=== PATIENT | male | born 1995 | race Caucasian/White ===

== ENCOUNTER 2024-04-15 15:09 | Observation (INO) ==
--- NOTE | 2024-04-15 15:30 | Emergency Department Note ---
Impression & Plan Dysrhythmia ED Provider Note HISTORY OF PRESENT ILLNESS: Patient is a 28-year-old male presenting with chest pressure and hot flashes. Patient reports that yesterday he would get recurrent episodes of feeling very hot and sweaty and feeling lightheaded and dizzy and having chest pressure. Reports that it occurred multiple times throughout the day. He states that he had further symptoms this morning and went to a walk-in clinic and was referred to the emergency department for further evaluation. Patient was found to be in A-fib with RVR at the walk-in clinic with his heart rate in the 140s and was referred to the ER for further workup. Patient denies any active chest pain. He denies any shortness of breath. Denies any DVT or PE history. He does state he drinks anywhere from 8-10 beers a day and has been doing this for multiple years. He denies any anticoagulation use. Denies any recent medication changes. He does report he had a heart attack when he was 17 years old. Denies any excessive caffeine intake recently. ROS: as above PHYSICAL EXAM: Constitutional: Patient appears in no acute distress. HENT: Head: Normocephalic and atraumatic. Eyes: EOMI, PERRL Mouth/Throat: Mucous membranes moist. Neck: Trachea midline. Neck supple. Cardiovascular: Tachycardic with irregularly irregular rhythm. No murmurs, rubs or gallops. Intact distal pulses. Pulmonary/Chest: No respiratory distress. Breath sounds clear and equal bilaterally. No wheezes or rales. No chest wall tenderness to palpation. Abdominal: Abdomen soft, no tenderness, rebound or guarding. Musculoskeletal: No edema, tenderness or deformity noted. Skin: Warm and dry. No rash, erythema, pallor or cyanosis Psychiatric: Appropriate mood and affect for situation. Neurological: Alert and keenly responsive. CN II-XII grossly intact, moving all extremities equally and fully. MDM: - Vitals signs showed tachycardia. - History obtained via patient. History as above. - Chronic conditions affecting care: None - Differential diagnoses include, but are not limited to: Electrolyte abnormality; dysrhythmia; ACS; PE; pneumonia - Order placed for continuous cardiac monitoring. At this time, monitor showed rate of 142 bpm with normal sinus rhythm, per my interpretation. - External medical records reviewed. - EKG interpreted by myself showed atrial fibrillation. Rate tachycardic at 149 bpm. QT 274. No acute ischemic changes. - Laboratory workup interpreted by myself showed normal WBC; stable electrolytes; normal troponin; normal lipase; negative d-dimer - CXR negative for pneumonia, per my interpretation - Patient initially given 10 mg IV cardizem. Heart rate came down to the upper 90s to low 100s. Patient does appear to be going into a sinus arrhythmia and then back into atrial fibrillation on telemetry. Cardizem drip was ordered and placed at bedside. - Repeat EKG obtained at 16:17 interpreted by myself showed normal sinus rhythm. Rate 89 bpm. QT 332. No acute ischemic changes. - Viral respiratory panel negative - On reassessment at 17:28, patient is still noted to be in the normal sinus rhythm. Rate 81 bpm on telemetry. - Discussion was had with watch caser about patient's case and need for admission - Hospitalist consulted for admission - [facility] ASSESSMENT AND PLAN: Diagnosis: dysrhythmia Plan: Admit Past Med/Surg History Problem List (Updated 04/15/24 @ 17:43 by Celia Leung MD) Dysrhythmia (Acute) Social History Smoking Status: Never smoker Preferred Language: Malay Feels Safe at Home: Yes Allergies Allergies Allergy/AdvReac Type Severity Reaction Status Date / Time No Known Allergies Allergy Unverified 04/15/24 16:04 Home Meds Home Medications Medication Instructions Recorded Confirmed buspirone 7.5 mg tablet 7.5 mg PO BID 04/15/24 04/15/24 trazodone 50 mg tablet 50 mg PO HS PRN Sleep 04/15/24 04/15/24 Results & Data (ED) Vital Signs Vital Signs - 24 hr 04/15/24 15:14 04/15/24 15:23 04/15/24 15:27 Temperature 36 C L Temperature Source Skin Pulse Rate 97 H 155 H Pulse Rate [Apical] Pulse Rhythm [Apical] Respiratory Rate 18 20 Respiratory Effort / Characteristics Non-Labored Spontaneous Respiratory Depth Normal Respiratory Pattern Regular Blood Pressure 140/75 Blood Pressure [Left Arm] Blood Pressure Mean 96 Blood Pressure Mean [Left Arm] Blood Pressure Position [Left Arm] Pulse Oximetry 97 100 Oxygen Delivery Method Room Air Room Air Room Air Sepsis Recent Fever Within 48 Hours No Sepsis New/Unexplained Change in Mental Status N/A Sepsis Action Taken by Nursing No Action Required 04/15/24 15:33 04/15/24 16:34 Temperature Temperature Source Pulse Rate 144 H Pulse Rate [Apical] 82 Pulse Rhythm [Apical] Regular Respiratory Rate 20 Respiratory Effort / Characteristics Respiratory Depth Respiratory Pattern Blood Pressure Blood Pressure [Left Arm] 127/82 Blood Pressure Mean Blood Pressure Mean [Left Arm] 97 Blood Pressure Position [Left Arm] Sitting Pulse Oximetry 98 Oxygen Delivery Method Room Air Sepsis Recent Fever Within 48 Hours Sepsis New/Unexplained Change in Mental Status Sepsis Action Taken by Nursing Laboratory Data 04/15/24 15:25 04/15/24 15:25 Lab Results 04/15/24 04/15/24 Range/Units 15: 16:20 WBC 9.21 (4.8-10.8) K/ul RBC 5.47 (4.70-6.10) M/uL Hgb 17.7 (14.0-18.0) g/dl Hct 48.7 (42.0-52.0) % MCV 89.0 (80.0-100.0) fL MCH 32.4 (25.0-34.0) pg MCHC 36.3 H (32.0-36.0) g/dL RDW Std Deviation 35.2 L (36.4-46.3) fL RDW Coeff of Mary 10.9 L (11.5-14.5) % Plt Count 260 (130-400) K/uL MPV 10.0 (9.4-12.4) fL Immature Gran % (Auto) 0.4 % Neut % (Auto) 51.9 % Lymph % (Auto) 36.0 % [place] % (Auto) 9.0 % Eos % (Auto) 2.0 % Baso % (Auto) 0.7 % Neut # (Auto) 4.78 (1.40-6.50) K/uL Lymph # (Auto) 3.32 (1.20-3.40) K/uL [place] # (Auto) 0.83 H (0.11-0.59) K/uL Eos # (Auto) 0.18 (0.00-0.50) K/uL Baso # (Auto) 0.06 (0.00-0.20) K/uL Immature Gran # (Auto) 0.04 (0.01-0.20) K/uL PT 10.7 (9.0-12.0) Seconds INR 1.0 (0.9-1.1) D-Dimer < 190 (0-500) ug/L FEU Sodium 141 (136-145) mmol/L Potassium 3.7 (3.5-5.1) mmol/L Chloride 103 (98-107) mmol/L Carbon Dioxide 31 (21-32) mmol/L Anion Gap 7 (3-11) BUN 13 (6-23) mg/dl Creatinine 1.20 (0.6-1.4) mg/dl Est Cr Clr Drug Dosing 100.8 ml/min eGFR 85.00 BUN/Creatinine Ratio 10.8 (10-20) Glucose 93 (70-99(Fasting)) mg/dl Calcium 9.5 (8.6-10.3) mg/dl Magnesium 2.2 (1.7-2.4) mg/dl Total Bilirubin 0.7 (0.2-1.0) mg/dl AST 29 (13-39) U/L ALT 28 (7-52) U/L Alkaline Phosphatase 67 (34-104) U/L Troponin I High Sens 4.5 (0-20) pg/ml Total Protein 8.3 (6.0-8.3) gm/dl Albumin 5.3 H (3.4-5.0) gm/dl Globulin 3.0 (2.5-4.0) gm/dl Albumin/Globulin Ratio 1.8 (0.9-2) Lipase 47 (11-82) U/L Adenovirus (PCR) Not Detected (NotDetected) B. pertussis DNA (PCR) Not Detected (NotDetected) B.parapertussis DNA PCR Not Detected (NotDetected) C. pneumoniae DNA (PCR) Not Detected (NotDetected) Coronavirus OC43 (PCR) Not Detected (NotDetected) Coronavirus HKU1 (PCR) Not Detected (NotDetected) Coronavirus 229E (PCR) Not Detected (NotDetected) SARS-CoV-2 (PCR) Not Detected (NotDetected) Coronavirus NL63 (PCR) Not Detected (NotDetected) Human Metapneumovir PCR Not Detected (NotDetected) Influenza Type A (PCR) Not Detected (NotDetected) Influenza Type B (PCR) Not Detected (NotDetected) M. pneumoniae (PCR) Not Detected (NotDetected) Parainfluenza 1 (PCR) Not Detected (NotDetected) Parainfluenza 2 (PCR) Not Detected (NotDetected) Parainfluenza 3 (PCR) Not Detected (NotDetected) Parainfluenza 4 (PCR) Not Detected (NotDetected) RSV (PCR) Not Detected (NotDetected) Entero/Rhino (PCR) Not Detected (NotDetected) Administered Medications Discontinued Medications Diltiazem HCl (Diltiazem Hcl 5 Mg/Ml 5 Ml Vial) 10 mg IV NOW STA Stop: 04/15/24 15:29 Last Admin: 04/15/24 15:31 Dose: 10 mg Documented By: CARLA Co-signed By: ALISSA Imaging Data Radiologist's Impression: Chest X-Ray 04/15/24 15:23 Chest radiograph, one view History: Chest pain Comparison: None Findings: Single AP view of the chest performed. No focal consolidation or pleural effusion. No pneumothorax. The cardiomediastinal silhouette is within normal limits. Normal pulmonary vascularity. No evidence for lymphadenopathy. No visualized bony or soft tissue abnormality. Impression: Normal chest radiograph Electronically signed by Kem Alba 04-15-2024 3:52 PM Discharge Plan Visit Data Chief Complaint: Chest Pain Stated Complaint: CHEST PAIN, ABN EKG ED Provider: Celia Leung Discharge Problem: Dysrhythmia Forms Stand Alone Forms: [facility] Prescriptions Prescriptions: No Action trazodone 50 mg Tablet 50 mg PO HS PRN (Reason: Sleep) buspirone 7.5 mg Tablet 7.5 mg PO BID Referrals Referrals: PCP,NO [Physician] -
[2024-04-15] MEDS: dilTIAZem HCl 5 MG/ML 5 ML VIAL IV STA (15:31)
[2024-04-15] MEDS ORDERED: dilTIAZem HCL 125 MG in DEXTROSE 5% 100 ML IV SCH (15:45)
[2024-04-15 15:50] LABS: Basophils # (auto) 0.06 K/uL (0.00-0.20); Basophils % (auto) 0.7 %; Eosinophils # (auto) 0.18 K/uL (0.00-0.50); Hematocrit (blood only) 48.7 % (42.0-52.0); Hemoglobin 17.7 g/dl (14.0-18.0); Immature Granulocytes # (auto) 0.04 K/uL (0.01-0.20); Immature Granulocytes % (auto) 0.4 %; Lymphocytes # (auto) 3.32 K/uL (1.20-3.40); Mean Corpuscular Hemoglobin 32.4 pg (25.0-34.0); Mean Corpuscular Hgb Conc 36.3 g/dL (32.0-36.0); Monocytes # (auto) 0.83 K/uL (0.11-0.59); Neutrophils # (auto) 4.78 K/uL (1.40-6.50); Neutrophils % (auto) 51.9 %; Platelet Count 260 K/uL (130-400); RDW Coefficient of Variation 10.9 % (11.5-14.5); RDW Standard Deviation 35.2 fL (36.4-46.3); Red Blood Count 5.47 M/uL (4.70-6.10); White Blood Count 9.21 K/ul (4.8-10.8)
--- NOTE | 2024-04-15 15:53 | XRay Report ---
Chest radiograph, one view History: Chest pain Comparison: None Findings: Single AP view of the chest performed. No focal consolidation or pleural effusion. No pneumothorax. The cardiomediastinal silhouette is within normal limits. Normal pulmonary vascularity. No evidence for lymphadenopathy. No visualized bony or soft tissue abnormality. Impression: Normal chest radiograph Electronically signed by Kem Alba 04-15-2024 3:52 PM
[2024-04-15 16:06] LABS: Albumin Globulin Ratio 1.8 (0.9-2); Albumin Level 5.3 gm/dl (3.4-5.0); BUN Creatinine Ratio 10.8 (10-20); Bilirubin,Total 0.7 mg/dl (0.2-1.0); Calcium 9.5 mg/dl (8.6-10.3); Creatinine Clr Calc Pharmacy 100.8 ml/min; Magnesium 2.2 mg/dl (1.7-2.4); Potassium 3.7 mmol/L (3.5-5.1); Total Protein 8.3 gm/dl (6.0-8.3)
[2024-04-15 16:12] LABS: Troponin I High Sensitivity 4.5 pg/ml (0-20)
[2024-04-15 16:14] LABS: D Dimer < 190 ug/L FEU (0-500); Prothrombin Time 10.7 Seconds (9.0-12.0)
[2024-04-15 17:27] LABS: Adenovirus PCR Not Detected (NotDetected); Bordetella parapertussis PCR Not Detected (NotDetected); Bordetella pertussis PCR Not Detected (NotDetected); Chlamydia pneumoniae PCR Not Detected (NotDetected); Coronavirus 229E PCR Not Detected (NotDetected); Coronavirus CoV-2 (COVID19)PCR Not Detected (NotDetected); Coronavirus HKU1 PCR Not Detected (NotDetected); Coronavirus NL63 PCR Not Detected (NotDetected); Coronavirus OC43PCR Not Detected (NotDetected); Human Metapneumovirus PCR Not Detected (NotDetected); Influenza A PCR Not Detected (NotDetected); Influenza B PCR Not Detected (NotDetected); Mycoplasma pneumoniae PCR Not Detected (NotDetected); Parainfluenza Virus 1 PCR Not Detected (NotDetected); Parainfluenza Virus 2 PCR Not Detected (NotDetected); Parainfluenza Virus 3 PCR Not Detected (NotDetected); Parainfluenza Virus 4 PCR Not Detected (NotDetected); Respiratory Syncytial VirusPCR Not Detected (NotDetected); Rhinovirus/Enterovirus PCR Not Detected (NotDetected)
--- NOTE | 2024-04-15 18:19 | History & Physical Report ---
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 Upon presentation to the ED, his rate was in the 140s to 150s. He was given diltiazem 10 mg IV x 1 with initially not response, after 20-30 minutes ED reports he converted to and stayed in NSR after fluctuating between atrial fibrillation and sinus rhythm. No known prior history of atrial fibrillation. Pt does consume eight beers per day, one Monster energy drink. No recent change in intake, no new medications. Referred for admission to observe on the monitor overnight and ensure patient stays in sinus rhythm. Based on symptom description, suspect he developed paroxysmal atrial fibrillation yesterday. - Admit to PCU - ECHO - Check TSH, lyme serologies. - Recommend avoidance of caffeine, specifically energy drinks - Gabapentin alcohol withdrawal protocol, thiamine, folic acid - Consult cardiology - spoke with Dr. Guaman who states pt could follow-up outpatient if no significant abnormalities on ECHO and maintains sinus rhythm overnight. - Will hold off on starting additional medications for now - PRN IV Lopressor for afib with RVR (rates >110) Plan Pt seen and reviewed with collaborating physician, Dr. Paul. Plan of care discussed and as outlined above. 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 He reports that yesterday, towards the end of his shift, had an episode of sweating like a hot flash, associated sensation of heart racing. Lasted a few minutes then went away. Shortly thereafter it happened again as he was getting ready to leave work but this time he developed sensation of near-syncope so he went out to his car and the symptoms improved. He went to the gym for his usual workout and did fine until he was doing pull-ups and developed similar symptoms of flushing and racing heart. These episodes continued overnight, seemingly triggered by exertion and then relieved by resting. He went to work today and was able to make it through his shift but continued to have these episodes so went to urgent care after work to be evaluated. There he was found to be in atrial fibrillation with RVR so he was referred to the ED for evaluation. He reports a history of unspecified heart issue at the age of 17 that was associated with untreated Lyme disease. Has not followed with cardiology since then. No other cardiac issues since then until current episode. He drinks one monster energy drink per day before work but denies other caffeine intake. Also report that he drinks 8 ten ounce beers per day, this is unchanged. Does not recall prior history of withdrawal. He was using a steroid protocol for body building but stopped this about a month ago. No smoking but uses pouches. Works 6-2 at [employer] [place]. Allergies Allergy/AdvReac Type Severity Reaction Status Date / Time No Known Allergies Allergy Unverified 04/15/24 16:04 Home Medications Medication Instructions Recorded Confirmed Type buspirone 7.5 mg tablet 7.5 mg PO BID PRN Anxiety 04/15/24 04/15/24 History trazodone 50 mg tablet 100 mg PO HS Sleep 04/15/24 04/15/24 History Past Med/Surg History Problem List (Updated 04/15/24 @ 18:57 by Rosmery Echeverria PA-C) PAF (paroxysmal atrial fibrillation) Dysrhythmia (Acute) Surgical History (Updated 04/15/24 @ 18:57 by Rosmery Echeverria PA-C) No pertinent past surgical history Family History (Updated 04/15/24 @ 18:57 by Rosmery Echeverria PA-C) Grandmother Heart abnormality required a pacer Other Breast cancer Social History Smoking Status: Never smoker Preferred Language: Beninese Feels Safe at Home: Yes Review of Systems Review of Systems: All systems reviewed & are unremarkable except as noted in Subjective Physical Exam Physical Exam: General: awake, alert, NAD HEENT: no scleral icterus, moist oral mucosa Heart: regular but tachycardic Lungs: CTA bilaterally Abdomen: soft, NT, +BS Extremities: no pedal edema, distal pulses intact and equal Skin: warm, dry, no jaundice or cyanosis Neurologic: Ox3, moving all extremities, no focal deficits, no confusion or dysarthria Results & Data Results & Data Vital Signs (Past 12 Hours) Vital Signs Temp Pulse Pulse Resp BP BP Pulse Ox 04/15/24 17:36 98 H 21 134/87 100 04/15/24 17:00 86 16 123/83 99 04/15/24 16:34 82 20 127/82 98 04/15/24 15:33 157 H 21 143/79 H 99 04/15/24 15:33 144 H 04/15/24 15:27 155 H 20 100 04/15/24 15:23 04/15/24 15:14 36 C L 97 H 18 140/75 97 O2 Del Method 04/15/24 17:36 Room Air 04/15/24 17:00 Room Air 04/15/24 16:34 Room Air 04/15/24 15:33 Room Air 04/15/24 15:33 04/15/24 15:27 Room Air 04/15/24 15:23 Room Air 04/15/24 15:14 Room Air Laboratory Results Lab Results 04/15/24 04/15/24 04/15/24 Range/Units 15:25 16:20 17:49 WBC 9.21 (4.8-10.8) K/ul RBC 5.47 (4.70-6.10) M/uL Hgb 17.7 (14.0-18.0) g/dl Hct 48.7 (42.0-52.0) % MCV 89.0 (80.0-100.0) fL MCH 32.4 (25.0-34.0) pg MCHC 36.3 H (32.0-36.0) g/dL RDW Std Deviation 35.2 L (36.4-46.3) fL RDW Coeff of Mary 10.9 L (11.5-14.5) % Plt Count 260 (130-400) K/uL MPV 10.0 (9.4-12.4) fL Immature Gran % (Auto) 0.4 % Neut % (Auto) 51.9 % Lymph % (Auto) 36.0 % [place] % (Auto) 9.0 % Eos % (Auto) 2.0 % Baso % (Auto) 0.7 % Neut # (Auto) 4.78 (1.40-6.50) K/uL Lymph # (Auto) 3.32 (1.20-3.40) K/uL [place] # (Auto) 0.83 H (0.11-0.59) K/uL Eos # (Auto) 0.18 (0.00-0.50) K/uL Baso # (Auto) 0.06 (0.00-0.20) K/uL Immature Gran # (Auto) 0.04 (0.01-0.20) K/uL PT 10.7 (9.0-12.0) Seconds INR 1.0 (0.9-1.1) D-Dimer < 190 (0-500) ug/L FEU Sodium 141 (136-145) mmol/L Potassium 3.7 (3.5-5.1) mmol/L Chloride 103 (98-107) mmol/L Carbon Dioxide 31 (21-32) mmol/L Anion Gap 7 (3-11) BUN 13 (6-23) mg/dl Creatinine 1.20 (0.6-1.4) mg/dl Est Cr Clr Drug Dosing 100.8 ml/min eGFR 85.00 BUN/Creatinine Ratio 10.8 (10-20) Glucose 93 (70-99(Fasting)) mg/dl Calcium 9.5 (8.6-10.3) mg/dl Magnesium 2.2 (1.7-2.4) mg/dl Total Bilirubin 0.7 (0.2-1.0) mg/dl AST 29 (13-39) U/L ALT 28 (7-52) U/L Alkaline Phosphatase 67 (34-104) U/L Troponin I High Sens 4.5 (0-20) pg/ml B-Natriuretic Peptide 155 H (0-100) pg/ml Total Protein 8.3 (6.0-8.3) gm/dl Albumin 5.3 H (3.4-5.0) gm/dl Globulin 3.0 (2.5-4.0) gm/dl Albumin/Globulin Ratio 1.8 (0.9-2) Lipase 47 (11-82) U/L Adenovirus (PCR) Not Detected (NotDetected) B. pertussis DNA (PCR) Not Detected (NotDetected) B.parapertussis DNA PCR Not Detected (NotDetected) C. pneumoniae DNA (PCR) Not Detected (NotDetected) Coronavirus OC43 (PCR) Not Detected (NotDetected) Coronavirus HKU1 (PCR) Not Detected (NotDetected) Coronavirus 229E (PCR) Not Detected (NotDetected) SARS-CoV-2 (PCR) Not Detected (NotDetected) Coronavirus NL63 (PCR) Not Detected (NotDetected) Human Metapneumovir PCR Not Detected (NotDetected) Influenza Type A (PCR) Not Detected (NotDetected) Influenza Type B (PCR) Not Detected (NotDetected) M. pneumoniae (PCR) Not Detected (NotDetected) Parainfluenza 1 (PCR) Not Detected (NotDetected) Parainfluenza 2 (PCR) Not Detected (NotDetected) Parainfluenza 3 (PCR) Not Detected (NotDetected) Parainfluenza 4 (PCR) Not Detected (NotDetected) RSV (PCR) Not Detected (NotDetected) Entero/Rhino (PCR) Not Detected (NotDetected) Diagnostic Findings Chest X-Ray 04/15/24 15:23 Chest radiograph, one view History: Chest pain Comparison: None Findings: Single AP view of the chest performed. No focal consolidation or pleural effusion. No pneumothorax. The cardiomediastinal silhouette is within normal limits. Normal pulmonary vascularity. No evidence for lymphadenopathy. No visualized bony or soft tissue abnormality. Impression: Normal chest radiograph Electronically signed by Kem Alba 04-15-2024 3:52 PM Medications Administered Discontinued Medications Diltiazem HCl (Diltiazem Hcl 5 Mg/Ml 5 Ml Vial) 10 mg IV NOW STA Stop: 04/15/24 15:29 Last Admin: 04/15/24 15:31 Dose: 10 mg Documented By: QGV Co-signed By: ARS Supervising Physician Co-Signing Physician Notes Attending Addendum: Case reviewed with the advanced practitioner. I have personally performed a history and physical examination on the patient. I have reviewed the advanced practitioner's documentation on the date of service referenced in note, and I agree with, and take responsibility for the plan of care. please refer to her notes for full details patient seen and examined, records reviewed by myself as well on exam, patient Seen resting in bed, comfortable, not in distress States he feels improved compared to initial presentation at the ER Denies active shortness of breath, chest pain, palpitations, dizziness Reports intermittent blood in the stools VS noted and reviewed oriented x3, not in distress, speaks in sentences with no effort nor accessory muscle use Mild tachycardia, low 100s, regular rhythm, no murmurs clear breath sounds bilaterally non distended, soft, nontender no bipedal edema, erythema, warmth no neuro deficits all labs, imaging noted and reviewed ASSESSMENT AND PLAN Paroxysmal atrial fibrillation Likely secondary to alcohol use, and energy drink consumption History of Lyme carditis Converted to sinus rhythm after being given Cardizem 10 mg IV push at the ER Currently in sinus rhythm but tachycardic Echocardiogram ordered TSH ordered As per cardiology, if without recurrence overnight, echocardiogram normal, patient can be discharged to home with close follow-up with cardiology Alcohol use Alcohol withdrawal protocol, with gabapentin taper Advised cessation Intermittent hematochezia Hemoglobin stable Likely secondary to hemorrhoids Monitor other diagnoses and plan of care as per advanced practitioner's notes Mario Paul MD
[2024-04-15 19:32] LABS: Thyroid Stimulating Hormone 2.484 uIu/ml (0.300-4.500)
[2024-04-15 19:38] LABS: Appearance Urine Cloudy (Clear); Bacteria Urine Automated None Seen (None Seen); Bilirubin Urine Negative (Negative); Blood Urine Negative (Negative); Cast Urine Automated 0-2 /lpf (0-2); Color Urine Yellow; Epithelial Cell Urine Auto 0-2 /hpf (0-2); Glucose Urine UA Negative (Negative); Ketones Urine Negative (Negative); Leukocyte Esterase Urine Negative (Negative); Nitrite Urine Negative (Negative); Protein Urine Negative (Negative); RBC Urine Automated 0-2 /hpf (0-2); Specific Gravity Urine 1.012 (1.000-1.030); Urobilinogen Urine Negative (Negative); WBC Urine Automated 0-5 /hpf (0-5); pH Urine 7.5 (4.5-7.5)
[2024-04-15 19:49] LABS: Lyme Screen Rflx Confirmation Positive (Negative)
[2024-04-15 20:02] LABS: Amphetamines+Metham, Urine Neg (Neg); Barbiturates, Urine Neg (Neg); Benzodiazepine, Urine Neg (Neg); Cocaine, Urine Neg (Neg); Fentanyl, Urine Neg (Neg); MDMA (Ecstacy), Urine Neg (Neg); Marijuana, Urine Neg (Neg); Methadone, Urine Neg (Neg); Opiate, Urine Neg (Neg); Phencyclidine, Urine Neg (Neg)
[2024-04-15 20:23] LABS: Lyme Ab IgG 2nd Tier Confirm Negative (Negative)
[2024-04-15 20:24] LABS: Lyme Ab IgM 2nd Tier Confirm Positive (Negative)
[2024-04-15] MEDS ORDERED: GABAPENTIN 1200MG ALCOHOL WITHDRAWAL LOAD PO STA (20:49)
[2024-04-15] MEDS ORDERED: LORazepam 2 MG/1 ML VIAL IV PRN (20:49)
[2024-04-15] MEDS ORDERED: METOPROLOL TARTRATE 1 MG/ML VIAL IV PRN ×2 (20:49→21:28)
[2024-04-15] MEDS: GABAPENTIN 600 MG TAB PO ONE (21:59)
[2024-04-15] MEDS: STAT IV Infusion **Titration per Protocol STA (22:38)
[2024-04-15] MEDS: traZODone HCL 100 MG TAB PO SCH (22:47)
[2024-04-16] MEDS: GABAPENTIN 600 MG TAB PO SCH (04:33)
[2024-04-16] MEDS: DOXYCYCLINE HYCLATE 100 MG CAP PO SCH (09:18)
[2024-04-16] MEDS: THIAMINE HCL 100 MG TAB PO SCH (09:18)
[2024-04-16] MEDS: FOLIC ACID 1 MG TAB PO SCH (09:19)
[2024-04-16 12:15] VITALS: RESP 18; TEMP 98.4; O2SAT 97
[2024-04-16] MEDS ORDERED: ONDANSETRON 4 MG OD TAB PO PRN (12:18)
--- NOTE | 2024-04-16 12:45 | Cardiology Consultation ---
<Statement entered by Lulu Guaman, - 04/16/24 20:53> I have reviewed the advanced practitioner's documentation and agree with the plan of care. I accept the responsibility for the associated risk. pt seen in cardiology consultation earlier today due to pAF pt had palpitations and lightheadedness so came to the ER and as found to be in AF; he did eventually convert to SR after IV diltiazem and was still admitted He reports years of drinking at least 10 beers a day and was doing steroids for muscle building his echo today reveals reduced global EF of about 35-40% which i suspect is due to ETOH use; he denies any SCD or CHF in the family He is not having any CHF problems or syncope recommend out patient cardiac MRI recommend discharge on eliquis although his CHADS2-VASc is low given his cardiomyopathy i prefer to be more aggressive discharge on toprol 25mg daily and lisinopril 5mg daily he will need follow up in our office after the cardiac MRI and will need to have an ischemic evaluation as an out patient i emphasized to the pt and his importance of ETOH cessation and no monster drinks or steroids any more I discussed the case and my recommendations with the hospitalist over the phone and he agreed with my plan I spent a total of [45] minutes coordinating, documenting, and providing care for this patient excluding time spent in the performance of separately billed services or time spent by another provider/QHP. Date of Consultation April 16, 2024 Assessment & Plan (1) PAF (paroxysmal atrial fibrillation): (2) Lyme disease: (3) Nonischemic cardiomyopathy: Plan Patient admitted with palpitations, diagnosed wiht afib RVR. Converted to NSR wiht IV Cardizem and metoprolol. Tested positive for Lyme. started on antibiotics. Echo revealed reduced LVEF at 35-40% Long history of alcohol abuse, steroid use for body building. We had long discussion today about lifestyle changes. Recommend starting metoprolol succinate 25 mg daily, lisinopril 5 mg daily Given reduced LVEF, recommend Eliquis 5 mg BID for afib/stroke prophylaxis. Will arrange outpatient cardiac MRI Outpatient EP f/u with Dr. Guaman after cardiac MRI. Case discussed with Dr. Guaman I spent a total of 60 minutes on the date of service in preparation, delivery, and documentation of the care provided to this patient, excluding any time spent in the performance of separately billed services. Fatemeh Moya PA-C Department of Cardiology, [facility] This chart was completed in part utilizing Speech Voice Recognition Software. Grammatical errors, random word insertions, pronoun errors, and incomplete sentences are an occasional consequence of this system due to software limitations, ambient noise, and hardware issues. Any formal questions or concerns about the content, text, or information contained within the body of this dictation should be directly addressed to the provider for clarification. History of Present Illness Reason for Consultation: Afib RVR Requesting Physician: Joe hospitalist Attending Physician: Dr. Guaman History of Present Illness Patient is a 28 year old male who presented to [facility] yesterday with complaints of Palpitations. Diagnosed with atrial fibrillation RVR. Converted to NSR with IV Cardizem and IV metoprolol. Diagnosed with Lyme disease as well. 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 He had EKG with T wave inversions in lateral leads at that time. Echo was unremarkable in 2013 per scanned outpatient records. Admits to daily alcohol intake, caffeine intake and energy drinks. He was previously on steroids for body building but stopped therapy last month At time of consult, patient resting in bed, feeling well. Denies acute cardiac complaints. No chest pain, dyspnea. No recurrent palpitations overnight. Allergies Allergy/AdvReac Type Severity Reaction Status Date / Time No Known Allergies Allergy Unverified 04/15/24 16:04 Home Medications Medication Instructions Recorded Confirmed Type buspirone 7.5 mg tablet 7.5 mg PO BID PRN Anxiety 04/15/24 04/15/24 History trazodone 50 mg tablet 100 mg PO HS Sleep 04/15/24 04/15/24 History apixaban 5 mg tablet (Eliquis) 5 mg PO BID #60 tabs 04/16/24 Rx cefuroxime axetil 250 mg tablet 500 mg (2 x 250 mg) PO BID 21 days 04/16/24 Rx #84 tabs lisinopril 5 mg tablet 5 mg PO DAILY #30 tabs 04/16/24 Rx metoprolol succinate 25 mg 25 mg PO DAILY #30 tabs 04/16/24 Rx tablet,extended release 24 hr (Toprol XL) ondansetron 4 mg disintegrating 4 mg PO Q4H PRN nausea and 04/16/24 Rx tablet vomiting #20 tabs Patient History Surgical History (Updated 04/15/24 @ 18:57 by Rosmery Echeverria PA-C) No pertinent past surgical history Family History (Updated 04/15/24 @ 18:57 by Rosmery Echeverria PA-C) Grandmother Heart abnormality required a pacer Other Breast cancer Social History Smoking Status: Never smoker Second Hand Exposure: No; Do You Dip or Chew Tobacco: No; Tobacco Cessation Education Requested by Patient: No Hx Alcohol Use: Yes Alcohol type: beer Hx Substance Use: No Preferred Language: Romansh Communication Ability: Effective 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 Beliefs That Will Affect Care: None Current Living Situation: Spouse Other Information That Helps Us Care for You: No Feels Safe at Home: Yes Safety Concerns: Feels Safe At This Time Assistive Devices: None Review of Systems Review of Systems: All systems reviewed & are unremarkable except as noted in HPI & below Physical Exam Constitutional: WD/WN, vitals as above no acute distress Neck: trachea midline, no thyromegaly Respiratory: normal respiratory effort, lungs clear to auscultation Cardiovascular: RRR, no murmur, no edema Gastrointestinal (Abdomen): normal bowel sounds, soft, nontender, no hepatosplenomegaly Neurologic: PERRL, EOMI, accommodation nl, no face palsy, no dysarthria Results & Data Vital Signs (Past 12 Hours) Vital Signs Temp Pulse Resp BP Pulse Ox O2 Del Method 04/16/24 12:14 36.9 C 98 H 18 114/60 97 Room Air 04/16/24 08:05 36.4 C L 82 17 116/74 96 Room Air 04/16/24 03:20 36.5 C 85 18 119/71 98 Room Air Laboratory Results Cardiac Enzymes 04/15/24 04/15/24 Range/Units 15:25 17:49 AST 29 (13-39) U/L Troponin I High Sens 4.5 (0-20) pg/ml B-Natriuretic Peptide 155 H (0-100) pg/ml Coagulation 04/15/24 04/15/24 Range/Units 15:25 17:49 PT 10.7 (9.0-12.0) Seconds B-Natriuretic Peptide 155 H (0-100) pg/ml CBC 04/15/24 Range/Units 15:25 WBC 9.21 (4.8-10.8) K/ul RBC 5.47 (4.70-6.10) M/uL Hgb 17.7 (14.0-18.0) g/dl Hct 48.7 (42.0-52.0) % Plt Count 260 (130-400) K/uL Neut # (Auto) 4.78 (1.40-6.50) K/uL Lymph # (Auto) 3.32 (1.20-3.40) K/uL [place] # (Auto) 0.83 H (0.11-0.59) K/uL Eos # (Auto) 0.18 (0.00-0.50) K/uL Baso # (Auto) 0.06 (0.00-0.20) K/uL Comprehensive Metabolic Panel 04/15/24 Range/Units 15:25 Sodium 141 (136-145) mmol/L Potassium 3.7 (3.5-5.1) mmol/L Chloride 103 (98-107) mmol/L Carbon Dioxide 31 (21-32) mmol/L BUN 13 (6-23) mg/dl Creatinine 1.20 (0.6-1.4) mg/dl Glucose 93 (70-99(Fasting)) mg/dl Calcium 9.5 (8.6-10.3) mg/dl AST 29 (13-39) U/L ALT 28 (7-52) U/L Alkaline Phosphatase 67 (34-104) U/L Total Protein 8.3 (6.0-8.3) gm/dl Albumin 5.3 H (3.4-5.0) gm/dl Intake and Output 04/15/24 04/16/24 04/16/24 22:59 06:59 14:59 Other: Weight 93.8 kg Weight Measurement Method Built in [facility] Diagnostic Findings Telemetry reviewed: NSR in the 80's. EKG reviewed from admission 04/15/24 at 15:21: Afib with RVR Mild T wave abnormality in inferior leads EKG reviewed from 04/15/24 at 16:17: NSR Early repolarization Afib has resolved Repeat EKG this morning 04/16/24: NSR, early repolarization Chest X-Ray 04/15/24 15:23 Normal chest radiograph Echo report reviewed: LVEF 35-40% Diffuse hypokinesis Grade I diastolic dysfunction Non dilated cardiac chambers No significant valvular disease Medications Administered Current Inpatient Medications Cefuroxime Axetil (Cefuroxime Axetil 250 Mg Tablet) 500 mg PO BID [facility] Stop: 04/26/24 20:59 Folic Acid (Folic Acid 1 Mg Tab) 1 mg PO QAM [facility] Stop: 05/16/24 08:59 Last Admin: 04/16/24 09:19 Dose: 1 mg Gabapentin (Gabapentin 600 Mg Tab) 600 mg PO Q8H JEFFRY Stop: 04/17/24 10:01 Gabapentin (Gabapentin 600 Mg Tab) 600 mg PO Q12H JEFFRY Stop: 04/18/24 08:01 Gabapentin (Gabapentin 600 Mg Tab) 600 mg PO Q24H JEFFRY Stop: 04/19/24 08:01 Lorazepam (Lorazepam 2 Mg/1 Ml Vial) 1 mg IV ONE PRN; Protocol PRN Reason: EtoH Withdrawal AWSS 6-10 Metoprolol Tartrate (Metoprolol Tartrate 1 Mg/Ml Vial) 5 mg IV Q4H PRN PRN Reason: atrial fibrillation with RVR Ondansetron HCl (Ondansetron 4 Mg Od Tab) 4 mg PO Q4H PRN PRN Reason: Nausea And Vomiting Stop: 05/16/24 12:17 Thiamine HCl (Thiamine Hcl 100 Mg Tab) 100 mg PO QAM [facility] Stop: 05/16/24 08:59 Last Admin: 04/16/24 09:18 Dose: 100 mg Trazodone HCl (Trazodone Hcl 100 Mg Tab) 100 mg PO [facility] Stop: 05/15/24 20:59 Last Admin: 04/15/24 22:47 Dose: 100 mg
--- NOTE | 2024-04-16 14:11 | Discharge Summary ---
Discharge Summary Date of Service April 16, 2024 Principal Dx & Hospital Course #1 = Principal Diagnosis (1) PAF (paroxysmal atrial fibrillation): (2) Nonischemic cardiomyopathy: (3) Lyme disease: Plan Patient presents emergency room with complaints of palpitations, racing heart and flushing. Was noted to be in atrial fibrillation. Patient converted to normal sinus rhythm with IV diltiazem and metoprolol. Patient was monitored in the hospital. He remained in sinus rhythm. Patient underwent echocardiogram and cardiology consultation was placed. Echocardiogram showed a significantly decreased ejection fraction of 30 to 35%. Etiology of his cardiomyopathy is most likely multifactorial. Patient does use a fair amount of beer on a daily basis, he also has been using some anabolic steroids for bodybuilding. Patient also uses and drinks a fair amount of highly caffeinated energy drinks. Patient also had a remote history of Lyme carditis. Echocardiogram from 2013 indicated that he had a normal ejection fraction at that time. He did test positive for Lyme IgM with this hospitalization. Patient reports that doxycycline gives him a lot of nausea and vomiting. He will be treated with cefuroxime. Patient was instructed by hospital medicine and cardiology to stop all alcohol and beer consumption. Also recommended stop all anabolic steroids. And strongly encouraged to decrease his caffeine intake and eliminate highly caffeinated energy drinks from his diet. Cardiology recommending starting goal-directed medications for his cardiomyopathy including Toprol XL, lisinopril. And with his paroxysmal atrial fibrillation and cardiomyopathy felt as though he should start anticoagulation. He will be started on Eliquis. He received dose these medications prior to discharge. He will then be discharged to follow-up with cardiology and his PCP. Patient's is at bedside at time of discharge and also aware of recommendations for lifestyle modification. Notes For Next Care Provider Will need close follow-up with cardiology as coordinated through their office Consider monitor BMP in 10 to 14 days Medication Changes From Visit Toprol-XL Lisinopril Eliquis Cefuroxime Zofran as needed Admission HPI Per Admitting Provider This is a 28 y/o male with history of unspecific cardiac issue related to untreated Lyme when he was 17 yrs old who presented to the ED today for evaluation of atrial fibrillation with RVR found at urgent care. He reports that yesterday, towards the end of his shift, had an episode of sweating like a hot flash, associated sensation of heart racing. Lasted a few minutes then went away. Shortly thereafter it happened again as he was getting ready to leave work but this time he developed sensation of near-syncope so he went out to his car and the symptoms improved. He went to the gym for his usual workout and did fine until he was doing pull-ups and developed similar symptoms of flushing and racing heart. These episodes continued overnight, seemingly triggered by exertion and then relieved by resting. He went to work today and was able to make it through his shift but continued to have these episodes so went to urgent care after work to be evaluated. There he was found to be in atrial fibrillation with RVR so he was referred to the ED for evaluation. He reports a history of unspecified heart issue at the age of 17 that was associated with untreated Lyme disease. Has not followed with cardiology since then. No other cardiac issues since then until current episode. He drinks one monster energy drink per day before work but denies other caffeine intake. Also report that he drinks 8 ten ounce beers per day, this is unchanged. Does not recall prior history of withdrawal. He was using a steroid protocol for body building but stopped this about a month ago. No smoking but uses pouches. Works 6-2 at [employer]. Admission Exam Per Admitting Provider See H&P Discharge Exam Constitutional: Alert, no acute distress, nontoxic, muscular build HEENT: Mucous membranes moist. Lungs: Clear to auscultation, decreased, no wheezes rales or rhonchi CV: S1-S2, regular, no murmur Abdomen: Soft, nontender, nondistended Extremities: No significant edema Neuro: No focal deficits Psych: Cooperative, normal mood Updated Medication List Medication Instructions Recorded Confirmed Type buspirone 7.5 mg tablet 7.5 mg PO BID PRN Anxiety 04/15/24 04/15/24 History trazodone 50 mg tablet 100 mg PO HS Sleep 04/15/24 04/15/24 History apixaban 5 mg tablet (Eliquis) 5 mg PO BID #60 tabs 04/16/24 Rx cefuroxime axetil 250 mg tablet 500 mg (2 x 250 mg) PO BID 21 days 04/16/24 Rx #84 tabs lisinopril 5 mg tablet 5 mg PO DAILY #30 tabs 04/16/24 Rx metoprolol succinate 25 mg 25 mg PO DAILY #30 tabs 04/16/24 Rx tablet,extended release 24 hr (Toprol XL) ondansetron 4 mg disintegrating 4 mg PO Q4H PRN nausea and 04/16/24 Rx tablet vomiting #20 tabs Hospital Stay Data Consultations 04/15/24 17:33 ED Decision to Admit Stat 04/15/24 20:49 Consult Cardiology Routine Diagnostic Imagining Performed Reviewed imaging, laboratory and diagnostic studies. Pertinent findings as below. Echocardiogram showed ejection fraction of 30 to 35% with global hypokinesis WBCs 9.2 Hemoglobin 17.7 Electrolytes are within normal limits Creatinine 1.20 LFTs within normal range BNP 155 TSH 2.48 Urinalysis unremarkable Urine drug screen negative Lyme screen positive Lyme tier 2 IgM positive Follow-up EKG, Personally reviewed showed normal sinus rhythm Pending Results Patient Have Any Pending Studies at Discharge: No Discharge Instructions Given to Patient (Per Discharging Provider) It is critical that you to not use any beer, alcohol, anabolic steroids, highly caffeinated energy drinks Follow-up with cardiology as coordinated through their office Total Time Total Time Spent Total Time Spent (In Minutes): 39
[2024-04-16] MEDS: METOPROLOL SUCC 25MG EXT REL TAB PO STA (14:48)
[2024-04-16] MEDS: lisinopril 5 MG TAB PO ONE (14:48)
[2024-04-16] MEDS: APIXABAN 5 MG TABLET PO ONE (14:49)
[2024-04-16 15:46] VITALS: BP 137/75; PULSE 98
[2024-04-16] MEDS ORDERED: GABAPENTIN 600 MG TAB PO SCH (18:00)
--- NOTE | 2024-04-16 20:50 | Electrocardiogram Report ---
Test Reason : Blood Pressure : */* mmHG Vent. Rate : 149 BPM Atrial Rate : * BPM P-R Int : * ms QRS Dur : 84 ms QT Int : 274 ms P-R-T Axes : * 68 4 degrees QTcB Int : 431 ms Atrial fibrillation with rapid ventricular response Abnormal ECG No previous ECGs available Confirmed by Fausto Hull ([id number]) on 04/16/2024 8:49:51 PM Referred By: REFERRED SELF Confirmed By: Fausto Hull
[2024-04-16] MEDS ORDERED: cefUROXime axetil 250 MG TABLET PO SCH (21:00)
[2024-04-16] MEDS ORDERED: APIXABAN 5 MG TABLET PO SCH (21:00)
--- NOTE | 2024-04-16 21:03 | Electrocardiogram Report ---
Test Reason : Blood Pressure : */* mmHG Vent. Rate : 89 BPM Atrial Rate : 89 BPM P-R Int : 156 ms QRS Dur : 88 ms QT Int : 332 ms P-R-T Axes : 64 58 34 degrees QTcB Int : 403 ms Normal sinus rhythm Normal ECG When compared with ECG of 15-Apr-2024 15:21, Sinus rhythm has replaced Atrial fibrillation Vent. rate has decreased by 60 bpm Nonspecific T wave abnormality, improved in Inferior leads Confirmed by Fausto Hull ([id number]) on 04/16/2024 9:03:33 PM Referred By: REFERRED SELF Confirmed By: Fausto Hull
--- NOTE | 2024-04-16 21:04 | Electrocardiogram Report ---
Test Reason : Blood Pressure : */* mmHG Vent. Rate : 85 BPM Atrial Rate : 85 BPM P-R Int : 144 ms QRS Dur : 92 ms QT Int : 350 ms P-R-T Axes : 70 63 25 degrees QTcB Int : 416 ms Normal sinus rhythm Early repolarization When compared with ECG of 15-Apr-2024 16:17, No significant change was found Confirmed by Fausto Hull ([id number]) on 04/16/2024 9:03:51 PM Referred By: REFERRED SELF Confirmed By: Fausto Hull
[2024-04-17] MEDS ORDERED: METOPROLOL SUCC 25MG EXT REL TAB PO SCH (09:00)
[2024-04-17] MEDS ORDERED: lisinopril 5 MG TAB PO SCH (09:00)
[2024-04-17] MEDS ORDERED: GABAPENTIN 600 MG TAB PO SCH (20:00)
[2024-04-19] MEDS ORDERED: GABAPENTIN 600 MG TAB PO SCH (08:00)
== END 2024-04-16 15:49 | disposition home or self-care (01) | DRG 309 ==
LOC: ED 15:09 → SUATTDRO 18:28 → EDINP 18:28 → INTOOBSV 18:28 → 4W 20:49